=== PATIENT | female | born 1965 | race Caucasian/White ===

== ENCOUNTER → 2018-03-28 | Day surgery (SDC) | payer OTHER ==
--- NOTE | 2018-03-27 17:22 | History & Physical Pre-Op ---
General Information and HPI History of Present Illness: Briseyda is a 52-year-old female with a long-standing and worsening complaint of pain to her left second metatarsophalangeal joint. The patient sustained an avulsion fracture at the base of proximal phalanx, which has now migrated to the metatarsophalangeal joint. The patient has failed conservative interventions, including immobilization and injection therapy. Allergies/Medications Allergies: Coded Allergies: No Known Allergies (03/27/18) Past History Surgical History Pertinent Surgical History: non-contributory Review of Systems Review of Systems: Unremarkable except for that noted to his present illness Exam & Diagnostic Data Last 24 Hrs of Vital Signs/I&O Intake & Output 03/27 1600 03/27 0800 03/27 0000 Intake Total Output Total Balance Patient 170 lb Weight Physical Exam: Lungs clear bilaterally. Heart sounds rate and rhythm regular. Lower extremity physical exam demonstrates intact pedal pulses bilaterally. Both dorsalis pedis and posterior tibial arteries are palpable bilaterally. Patient without any sensory motor deficits. Deep tendon reflexes grossly intact. Patient noted to have significant pain with palpation and range of motion through the left second metatarsophalangeal joint. Assessment/Plan Assessment/Plan: Painful nonunion left second metatarsophalangeal joint. A lengthy discussion reviewing both surgical and conservative options was held the patient at bedside and the patient elects to go forward with surgery despite the risks. As Ranked By This Provider Problem List: 1. Primary osteoarthritis, left ankle and foot Attending MD Review Statement Attending Statement Attending MD Statement: examined this patient
[~2018-03-28] VITALS: Ht 175.3 cm; Wt 77.1 kg
--- NOTE | 2018-03-28 13:31 | Operative Report ---
Operative/Inv Procedure Report Surgery Date: 03/28/18 Name of Procedure: 1 open arthrotomy left second metatarsophalangeal joint 2 intraoperative administration of ankle block anesthesia Pre-Operative Diagnosis: 1 painful, nonunited fracture fragment second metatarsophalangeal joint left foot Post-Operative Diagnosis: The same Estimated Blood Loss: scant Surgeon/Clinical Systems Analyst: Nils Dillon DPM, DPM Anesthesia: local monitored anesthesi, moderate sedation Operative/Procedure Note Note: After obtaining informed consent the patient was brought to the operating room and placed on the operating table in the supine position. The patient was then securely fastened to the operating table utilizing safety belt. After administration of IV sedation, 10 mL of 0.5% Marcaine plain was infiltrated about the patient's left ankle. A well-padded ankle tourniquet was placed about the patient's left lower extremity. 2 g of Ancef were delivered intravenously times one dose. The left foot and ankle within scrubbed, prepped and draped in usual aseptic manner. The left lower extremity was elevated to examine to limb, at which point the ankle tourniquet was inflated 250 mL mercury. Attention was then directed dorsal aspect the left second digit where a 3 cm linear incision was made overlying the lateral aspect of the metatarsophalangeal joint. The dissection was then carried down subtenons tissues. All vital neurovascular structures were identified protected. A linear capsulotomy was then performed exposing the joint. A fracture fragment was identified at the plantar lateral aspect of joint. She was identified and shelled out. The specimen was passed from the operative field and sent for pathologic inspection. The open wound and joint was then irrigated with copious amounts of normal sterile saline. The capture structures were then reapproximated with 4-0 Vicryl. Subtenons tissues reapproximated 4-0 Vicryl and the skin edges reapproximated 4-0 nylon. Incision was dressed with Xeroform, 4 x 4's, Kerlix and an Osvaldo wrap. The patient was noted to tolerate both procedure and anesthesia well and the patient was transported from the operating room to recovery with vital signs stable.
== END ==
LOC: STS 02:36
DX: M24.075 Loose body in left toe joint(s) (principal); M19.072 Primary osteoarthritis, left ankle and foot; M77.42 Metatarsalgia, left foot
CPT/HCPCS: 81025; J0690; J2001; J2250